=== PATIENT | male | born 2000 | race Caucasian/White ===

== ENCOUNTER 2019-05-02 10:20 | Emergency (ER) | payer BC, OTHER ==
--- OUTSIDE RECORDS SUMMARY | 2019-05-02 10:27 | XMS REPORT | Continuity of Care Document ---
:2000 External Reference #:[id number] Author Name Awais Schwartz MD (transmitted by agent of provider Diana Montalvo) Address [address] [place] [address] Care Team Providers Name Role Phone [facility] Care Team Information Board Operator Problems Description No Information Available Social History Type Date Description Comments Sex Unknown ETOH Use Denies alcohol use Tobacco Use Start: Unknown Patient has never smoked Smoking Status Reviewed: 03/19/19 Patient has never smoked Exercise Type/Frequency Exercises regularly Allergies, Adverse Reactions, Alerts Description No Known Drug Allergies Medications Active Medications SIG Qnty Indications Ordering Provider Date Advil Unknown Immunizations Description No Information Available Vital Signs Date Vital Result Comment 03/19/2019 11:00am Height 66 inches 5'6" Weight 150.00 lb Heart Rate 59 /min BP Systolic 104 mmHg BP Diastolic 72 mmHg Pain Level 0 BMI (Body Mass Index) 24.2 kg/m2 10/17/2017 1:05pm Height 66 inches 5'6" Weight 157.00 lb Heart Rate 48 /min BP Systolic Sitting 124 mmHg BP Diastolic Sitting 70 mmHg Respiratory Rate 16 /min Pain Level 0 BMI (Body Mass Index) 25.3 kg/m2 Blood Pressure Percentile 0 % Height Percentile 11 % Weight Percentile 58th Results Description No Information Available Procedures Description No Information Available Medical Devices Description No Information Available Encounters Description No Information Available Assessments Description No Information Available Plan of Treatment No Information Available Functional Status Description No Information Available Mental Status Description No Information Available Referrals Description No Information Available
[2019-05-02 11:12] VITALS: BP 131/75
--- NOTE | 2019-05-02 11:39 | UC ---
HPI Wound/Suture Re-check - HPI Summary HPI Summary: Patient presents to urgent care for evaluation of a left knee wound. Patient is 3 weeks status post meniscus repair near density. Patient states he resumed wrestling this past Monday. Patient states Monday and Monday he had some increased edema. Mild increase in pain. Yesterday however the glue on his wound came open. Patient has had some serous drainage since. Patient to face time his surgeon who was not concerned about acute infection but wrote a prescription for Keflex. Patient's short history notable recommended he have it checked as well. No fevers or chills. No increased pain. No blood. No thick discharge. No change in range of motion. Patient is not taking a couple hours. Patient denies a personal history of MRSA. Patient's medications reviewed this is visit. - History Of Current Complaint Chief Complaint: [place] Stated Complaint: KNEE SURGICAL WOUND CHECK Hx Obtained From: Patient Onset/Duration: Gradual Onset Severity: Mild Pain Intensity: 2 Pain Scale Used: 0-10 Numeric - Allergies/Home Medications Allergies/Adverse Reactions: Allergies Allergy/AdvReac Type Severity Reaction Status Date / Time No Known Allergies Allergy Verified 05/02/19 10:57 Home Medications: Home Medications Ibuprofen TAB* [Advil TAB*] 200 mg PO Q6H PRN 05/02/19 [History Confirmed ] PMH/Surg Hx/FS Hx/Imm Hx Previously Healthy: Yes - Surgical History Surgical History: Yes Surgery Procedure, Year, and Place: RIGHT ELBOW SURGERY WITH REMOVAL OF METAL;. LEFT ELBOW SURGERY WITH REMOVAL OF METAL;. ACL RT KNEE. meniscus L knee - Family History Known Family History: Positive: Non-Contributory - Social History Occupation: Student Lives: With Family Alcohol Use: None Substance Use Type: None Smoking Status (MU): Never Smoked Tobacco Review of Systems All Other Systems Reviewed And Are Negative: Yes Constitutional: Negative: Fever Skin: Positive: Other - Discharge from surgical wound Musculoskeletal: Positive: Other: - Meniscal surgery and wound Physical Exam - Summary Physical Exam Summary: Vital Signs Reviewed: Yes A+Ox3, no distress Eyes: Conjunctiva Clear ENT: Hearing grossly normal neck: supple Respiratory: Positive: No respiratory distress, No accessory muscle use Cardiovascular: skin color reflect adequate perfusion Musculoskeletal Exam: + SLE + flex/ext knee with minimal discomfort lateral aspect + flex/ext ankle Pt with small surgical stab incision lateral aspect of knee - superior to jointline, lateral patella. No erythema, warmth. no tender to palp. Pt with serous drainage from wound - culture taking Neurological: Positive: Alert, ambulatory without difficulty Psychological: Positive: Normal Response To examiner Skin: Positive: no rash, no ecchymosis - see MS Triage Information Reviewed: Yes Vital Signs: Initial Vital Signs Temp 99.0 F 05/02/19 10:53 Pulse 53 05/02/19 10:53 Resp 16 05/02/19 10:53 BP 131/75 05/02/19 10:53 Pulse Ox 99 05/02/19 10:53 Course/Dx - Course Course Of Treatment: Patient presents to urgent care for evaluation of drainage from a knee meniscus surgical wound. Patient had surgery 3 weeks ago. Patient resumed wrestling this week. Patient states the glue opened up and he's had serous drainage since this time. Patient described as yellow and liquidy. No blood no purulence no odor. Patient without any fevers chills. No redness. No - Diagnosis Provider Diagnosis: Encounter for post surgical wound check Discharge ED - Sign-Out/Discharge Documenting (check all that apply): Patient Departure All imaging exams completed and their final reports reviewed: No Studies - Discharge Plan Condition: Stable Disposition: HOME Patient Education Materials: Acute Wounds (ED) Referrals: [facility] [Provider Group] Mary Cohen MD [Primary Care Provider] - Additional Instructions: - Cover your wound with a nonstick bandage - keep cover and clean - Okay to wash with warm, soapy water - pat dry - Take antibiotics as currently prescribed. your wound was cultured today - if you need a different antibiotic, you will receive a call from a care molybdenum steamer operator - monitor your wound closely for signs of infection - reddness, red streaking, fever, thicker discharge - if you have ANY other questions or concerns you should be rechecked - Billing Disposition and Condition Condition: STABLE Disposition: Home
== END 2019-05-02 11:57 | disposition home or self-care (01) ==
LOC: UCEAST 10:20
DX: Z47.89 Encounter for other orthopedic aftercare (principal)
CPT/HCPCS: 87070; 87077; 87186; 87205; 99211; G0463